=== PATIENT | female | born 1975 | race Caucasian/White ===

== ENCOUNTER 2024-07-09 09:30 | Outpatient (RCR) | payer SELFPAY | END 2024-11-06 23:59 | disposition home or self-care (01) | PROVIDERS: PCP Physician Assistant; Visit Provider Physician Assistant | DX: N81.10 Cystocele, unspecified (principal); N81.6 Rectocele; Z51.89 Encounter for other specified aftercare | CPT/HCPCS: 97112; 97161; 97530; 97535 ==